=== PATIENT | female | born 1995 | race Caucasian/White ===

== ENCOUNTER → 2024-11-05 | Outpatient (REF) | payer OTHER | LOC: M SFHCWAGY 10:10 | PROVIDERS: ATTEND Specialist | DX: Z34.83 Encounter for supervision of other normal pregnancy, third trimester (principal) ==

== ENCOUNTER 2024-11-18 08:06 | Outpatient (CLI) | payer OTHER ==
[~2024-11-18] VITALS: Ht 165.1 cm; Wt 96.2 kg
[2024-11-18] MEDS ORDERED: TUMS500C PO (08:18)
[2024-11-18] MEDS ORDERED: UNIS25TA3 PO (08:18)
[2024-11-18] MEDS ORDERED: GNP250TA9 PO (08:18)
[2024-11-18] MEDS ORDERED: ACET-907 PO (08:18)
[2024-11-18] MEDS ORDERED: WELLTAB38 PO (08:18)
[2024-11-18] MEDS ORDERED: PRENTAB9 PO (08:18)
[2024-11-18 08:23] VITALS: BP 121/80
[2024-11-18 09:33] VITALS: BP 124/80
[2024-11-20] MEDS ORDERED: FAMO1TAB11 PO (11:49)
== END 2024-11-18 10:30 | disposition home or self-care (01) ==
LOC: M LDO 08:06
PROVIDERS: ATTEND Specialist
DX: O32.1XX0 Maternal care for breech presentation, not applicable or unspecified (principal); Z3A.38 38 weeks gestation of pregnancy
CPT/HCPCS: 59025; 59412; G0463

== ENCOUNTER → 2024-12-09 | Outpatient (REF) | payer OTHER ==
[~2024-12-09] MED LIST: ACET-907 PO; COLA100C5 PO; FAMO1TAB11 PO; GNP250TA9 PO; IBUP80TA PO; OXYC1TAB23 PO; PRENTAB9 PO; TUMS500C PO; UNIS25TA3 PO; WELLTAB38 PO
[2024-12-09 11:26] LABS: APPEARANCE, URINE CLOUDY (CLEAR); BACTERIA, URINE AUTO 2+ (NEGATIVE); BILIRUBIN, URINE AUTO NEGATIVE (NEGATIVE); BLOOD, URINE BLOOD 1+ (NEGATIVE); GLUCOSE, URINE (UA) AUTO NEGATIVE (NEGATIVE); KETONE, URINE AUTO NEGATIVE (NEGATIVE); LEUKOCYTE ESTERASE, URINE AUTO 3+ (NEGATIVE); MUCUS, URINE SMALL (NEGATIVE); NITRITE, URINE AUTO POSITIVE (NEGATIVE); PROTEIN, URINE AUTO NEGATIVE (NEGATIVE); RBC, URINE AUTO 23 /HPF (0-3); SPECIFIC GRAVITY URINE AUTO 1.005 (1.002-1.035); SQUAMOUS EPITHELIAL CELL UR AU 0 /HPF (0-6); UROBILINOGEN, URINE AUTO 0.2 mg/dL (0.0-2.0); WBC, URINE AUTO TNTC /HPF (0-3)
== END ==
LOC: M SFHCWAGY 10:15
PROVIDERS: ATTEND Specialist
DX: R30.0 Dysuria (principal)